=== PATIENT | female | born 1940 | race Caucasian/White ===

== ENCOUNTER → 2019-06-30 | Outpatient (CLI) | payer MEDICARE ==
[2019-06-30 13:18] LABS: African American GFR (CKD) >90 (>60 ml/min/1.73 sqM); Blood Urea Nitrogen 19 mg/dL (7-17)
--- NOTE | 2019-06-30 14:46 | CT ---
EXAMINATION TYPE: CT urogram wo/w con DATE OF EXAM: 06/30/2019 COMPARISON: HISTORY: Microscopic hematuria. CT DLP: 983.6 mGycm CONTRAST: Performed and with IV Contrast, patient injected with 100 mL of Isovue 300. CT Urography was performed with unenhanced followed by enhanced images of the kidneys, ureters and ur inary bladder. Delayed images were obtained. 3d reconstruction was performed at a separate work sta tion. FINDINGS: KIDNEYS/BLADDER: No hydronephrosis. Nonobstructing calculus lower pole left kidney measuring 6.5 mm with additional smaller adjacent 3 mm calculus. No distinct solid renal mass. 9 mm simple cyst upper pole left kidney medially. Urinary bladder grossly unremarkable. LUNG BASES-: No visible nodule. No infiltrate. LIVER/GB: Mild hepatic steatosis. No calcified gallstones. No space occupying hepatic lesion. Bili [place] tree is of normal caliber. PANCREAS: No inflammation. No distinct mass. SPLEEN: No splenic enlargement. No lesion seen. ADRENALS: No nodule. No thickening. BOWEL: Normal appendix. Normal bowel caliber. No inflammation. GENITAL ORGANS: No gross abnormality. LYMPH NODES: No greater than 1cm abdominal or pelvic lymph nodes are appreciated. AORTA: No significant abnormality. OSSEOUS STRUCTURES: No significant abnormality is seen. OTHER: No significant additional abnormality is seen. IMPRESSION: 1. Nonobstructing left-sided nephrolithiasis. 2. Subcentimeter simple cyst left kidney.
== END | disposition home or self-care (01) ==
LOC: RADCTMAIN 12:32
PROVIDERS: ATTEND Urology
DX: N20.0 Calculus of kidney (principal); N28.1 Cyst of kidney, acquired; Z88.5 Allergy status to narcotic agent
CPT/HCPCS: 82565; 84520; 74178; 36415; 74400; Q9967

== ENCOUNTER → 2020-08-12 | Outpatient (CLI) | payer MEDICARE ==
--- NOTE | 2020-08-12 17:24 | FL ---
EXAMINATION: [facility] DATE: 08/12/2020 CLINICAL HISTORY: 79-year-old female S37.20XA, patient with bladder dome biopsy complicated by perfor ation. COMPARISON: No recent studies available. Total fluoroscopy time: 2 minutes 5 seconds. Total images: 44 TECHNIQUE AND FINDINGS: The bladder was already catheterized by an indwelling Garcia. Retrograde instillation of water-soluble contrast (Cystografin) demonstrates slight irregularity of the bladder dome but no extravasation dem onstrated. A left ureteral stent is present. At 50 mL, mild right-sided vesicoureteral reflux is noted. At 100 mL, reflux reaches into the right renal collecting system. The patient could only tolerate a total of 150 mL instillation into the bladder. On the initial bladder emptying with the Garcia bag reconnected, mild vesicoureteral reflux is noted o n the left. There is essentially complete emptying of the bladder at the end of the exam. IMPRESSION: 1. The patient could only tolerate a total of 150 mL contrast into the bladder. 2. Mild irregularity of the bladder dome likely postsurgical. No extravasation seen during the study. 3. During filling, there is vesicoureteral reflux on the right which reaches up to the kidney. 4. Indwelling left ureteral stent. During initial emptying, mild vesicoureteral reflux is also seen o n the left.
== END | disposition home or self-care (01) ==
LOC: RADFLMAIN 11:14
PROVIDERS: ATTEND Urology
DX: N13.70 Vesicoureteral-reflux, unspecified (principal); Z88.5 Allergy status to narcotic agent; Z96.0 Presence of urogenital implants
CPT/HCPCS: 74455

== ENCOUNTER → 2020-09-14 | Outpatient (CLI) | payer MEDICARE ==
[2020-09-14 14:18] LABS: Basophils # (A) 0.1 k/uL (0-0.2); Basophils % (A) 1 %; Eosinophils # (A) 0.2 k/uL (0-0.7); Eosinophils % (A) 2 %; HCT 40.6 % (34.0-46.0); HGB 13.2 gm/dL (11.4-16.0); Lymphocytes # (A) 2.6 k/uL (1.0-4.8); Lymphocytes % (A) 24 %; MCH 32.3 pg (25.0-35.0); MCHC 32.4 g/dL (31.0-37.0); MCV 99.7 fL (80.0-100.0); Monocytes # (A) 0.5 k/uL (0-1.0); Monocytes % (A) 5 %; Neutrophils # (A) 7.1 k/uL (1.3-7.7); Neutrophils % (A) 67 %; Platelet Count 362 k/uL (150-450); RBC 4.07 m/uL (3.80-5.40); RDW 12.9 % (11.5-15.5); WBC 10.6 k/uL (3.8-10.6)
[2020-09-14 14:28] LABS: African American GFR (CKD) >90 (>60 ml/min/1.73 sqM); Anion Gap 7 mmol/L; Blood Urea Nitrogen 18 mg/dL (7-17); Carbon Dioxide 30 mmol/L (22-30); Chloride 104 mmol/L (98-107); Glucose 76 mg/dL (74-99); Non-African American GFR(CKD) 80 (>60 ml/min/1.73 sqM); Potassium 4.4 mmol/L (3.5-5.1); Sodium 141 mmol/L (137-145)
[2020-09-15 20:43] LABS: Magnesium 2.1 mg/dL (1.6-2.3)
[2020-09-15 20:59] LABS: T4, Free (Free Thyroxine) 1.97 ng/dL (0.78-2.19)
== END | disposition home or self-care (01) ==
LOC: LABPAT 12:43
PROVIDERS: ATTEND Internal Medicine Geriatric Medicine
DX: Z01.818 Encounter for other preprocedural examination (principal); N20.1 Calculus of ureter; R31.0 Gross hematuria
CPT/HCPCS: 36415; 80048; 83735; 84439; 84443; 85025

== ENCOUNTER → 2020-09-23 | Day surgery (SDC) | payer MEDICARE ==
--- NOTE | 2020-09-19 12:44 | P.GSHP ---
History of Present Illness H&P Date: 09/19/20 Chief Complaint: Left ureteral calculus The patient is an 79-year-old white female with urinary frequency and urinary incontinence, which appears to be due to interstitial cystitis. She underwent cystoscopy with hydrodistention and late June. She sustained a bladder pe rforation, for which she underwent surgical repair on 07/25/2020. A computed tomography scan at that time showed evidence of left hydronephrosis due to a 9 mm left UPJ calculus. A ureteral stent was placed at the time of her surgical exploration. She now comes for ureteroscopic removal of the calculus. - Constitutional Constitutional: Denies chills, Denies fever - Genitourinary (Female) Genitourinary: Reports as per HPI Past Medical History Past Medical History: Cancer, Osteoarthritis (OA) Additional Past Medical History / Comment(s): HX OF BREAST CANCER WITH RADIATION [place] (1998), BACK PAIN, STATES IRREGULAR HEART BEAT. History of Any Multi-Drug Resistant Organisms: None Reported Past Surgical History: Back Surgery, Breast Surgery, Hysterectomy, Orthopedic Surgery, Tubal Ligation Additional Past Surgical History / Comment(s): LEFT BREAST LUMPECTOMY, CARPAL TUNNEL SURGERY, REPAIR OF BLADDER RUPTURE Past Anesthesia/Blood Transfusion Reactions: Motion Sickness, Postoperative Nausea & Vomiting (PONV) Past Psychological History: Depression Past Alcohol Use History: None Reported Additional Past Alcohol Use History / Comment(s): SMOKED FOR A COUPLE YEARS IN HER 20'S. Past Drug Use History: None Reported - Past Family History Mother Family Medical History: Cancer Medications and Allergies Home Medications Medication Instructions Recorded Confirmed Type Aspirin 325 mg PO DAILY 09/10/15 09/10/15 History Atorvastatin [Lipitor] 20 mg PO DAILY 09/10/15 09/14/15 History Calcium Carbonate/Vitamin D3 1 each PO DAILY 09/10/15 09/14/15 History [Calcium 600 + Vit D Tablet] Levothyroxine Sodium [Synthroid] 25 mcg PO DAILY 09/10/15 09/14/15 History Venlafaxine HCl [Effexor] 37.5 mg PO DAILY 09/10/15 09/14/15 History Vitamin B 1 tab PO DAILY 09/10/15 09/10/15 History Cephalexin [Keflex] 500 mg PO Q8HR #15 cap 09/14/15 Rx HYDROcodone/APAP 5-325MG [[place] 5] 1 - 2 each PO Q4HR PRN #90 tab 09/14/15 Rx Allergies Allergy/AdvReac Type Severity Reaction Status Date / Time No Known Allergies Allergy Verified 09/10/15 11:17 Surgical - Exam - General well developed, well nourished, no distress - Respiratory normal respiratory effort, clear to auscultation - Cardiovascular Rhythm: regular Abnormal Heart Sounds: no systolic murmur, no diastolic murmur, no rub, no S3 Gallop, no S4 Gallop, no click, no other - Abdomen Abdomen: soft, non tender, no guarding, no rigid, no rebound - Psychiatric oriented to time, oriented to person, oriented to place, speech is normal, kevin ry intact Results - Imaging CT scan - abdomen: report reviewed, image reviewed Assessment and Plan (1) Calculus of ureter Status: Acute Code(s): N20.1 - CALCULUS OF URETER SNOMED Code(s): 39037768 Plan: Cystoscopy, left ureteral stent removal, left ureteroscopy with Holmium laser lithotripsy and possible stone basketing. The patient has been reviewed in detail, including potential risks, which include anesthesia, bleeding, infection, and ureteral injury. Care will be taken to avoid bladder distention during the procedure.
[2020-09-21 10:53] VITALS: BMI 24.7
[~2020-09-23] MED LIST: DEXAMETHASONE SOD PHOSPHATE 4 MG/ML 1 ML VIAL IV ONE; GLYCOPYRROLATE 0.2 MG/ML 2 ML VIAL ONE; LACTATED RINGERS 1,000 ML IV SCH; LEVOFLOXACIN 500MG-D5W PMX 500 MG in DEXTROSE/WATER 1 100ML.BAG IVPB PRN; LIDOCAINE 1% INJ 10MG/ML (20 ML MDV) ONE; METOPROLOL SUCCINATE (ER) 25 MG TAB.ER.24H PO STA; METOPROLOL SUCCINATE (ER) 50 MG TAB.ER.24H PO STA; MIDAZOLAM 2 MG/2 ML VIAL IV PRN; NEOSTIGMINE 1 MG/ML 10 ML VIAL ONE; ONDANSETRON 4 MG/2 ML VIAL IVP ONE; ONDANSETRON 4 MG/2 ML VIAL ONE; PROPOFOL 10 MG/ML 20 ML VIAL IV ONE; ROCURONIUM 10 MG/ML (10 ML VIAL) IV ONE; SUCCINYLCHOLINE CHLORIDE 100 MG/5 ML SYR IV ONE; fentaNYL (PF) 50 MCG/ML 2 ML AMP ONE
--- NOTE | 2020-09-23 06:31 | XR ---
EXAMINATION TYPE: XR KUB DATE OF EXAM: 09/23/2020 6:20 AM CLINICAL HISTORY: Kidney stones, prelithotripsy. TECHNIQUE: Single supine KUB image of the abdomen and obtained. COMPARISON: CT urogram June 30, 2019. FINDINGS: New Double-J left ureter stent. Roughly 13 mm calculus along proximal left ureter stent on current study. Suspect additional rounded 7 mm calculus in the pelvis. No definite right-sided nephro lithiasis. Redemonstration of underlying scoliosis with multilevel spurring and disc space narrowing in the thor acolumbar spine. Moderate to severe left greater than right hip degenerative change redemonstrated. O verall nonobstructive bowel gas pattern. IMPRESSION: As above.
--- NOTE | 2020-09-23 09:39 | FL ---
EXAMINATION TYPE: FL guidance operating room DATE OF EXAM: 09/23/2020 CLINICAL HISTORY: Left-sided kidney stones. TECHNIQUE: Fluoroscopy. COMPARISON: Same day abdominal x-ray FINDINGS: Fluoroscopic guidance was provided during left-sided lithotripsy and stent insertion proce dure performed by Dr. Tapia. A total of 44 seconds of fluoroscopic time was utilized during the pro cedure and single spot intraoperative image is acquired. Single image acquired shows proximal two thi rds of double-J left ureteral stent. IMPRESSION: As Above.
[2020-09-23] MEDS: HYDROmorphone 0.5 MG/0.5 ML SYRINGE IVP PRN ×2 (09:45→10:05)
--- NOTE | 2020-09-23 09:47 | P.OP ---
Date of Procedure: 09/23/20 Preoperative Diagnosis: Left ureteral calculus Postoperative Diagnosis: Same Procedure(s) Performed: Cystoscopy, left ureteroscopy with Holmium laser lithotripsy, left ureteral stent change Anesthesia: GETA Surgeon: Jose Tapia Estimated Blood Loss (ml): 10 IV fluids (ml): 400 Pathology: none sent Condition: stable Disposition: PACU Indications for Procedure: The patient is an 79-year-old white female with urinary frequency and urinary incontinence, which appears to be due to interstitial cystitis. She underwent cystoscopy with hydrodistention and late June. She sustained a bladder perforation, for which she underwent surgical repair on 07/25/2020. A computed tomography scan at that time showed evidence of left hydronephrosis due to a 9 mm left UPJ calculus. A ureteral stent was placed at the time of her surgical exploration. She now comes for ureteroscopic removal of the calculus. Operative Findings: 1 cm left UPJ calculus, fragmented completely. Description of Procedure: The patient was taken to the operating room and placed in the dorsolithotomy position, with legs supported in Mamadou stirrups. The external genitalia was prepped and draped sterilely. The 30 lens was used to introduce the 21-Maltese Astorga cystoscopic sheath through the urethra and into the bladder under direct vision. The bladder was examined in its entirety. Inflammation was seen in the areas of recent bladder repair. No tumors or foreign bodies were seen. Grasping forceps were used to remove the ureteral stent. The Astorga Cobra flexible ureteroscope was passed into the bladder, but the left ureteral orifice could not be cannulated. Therefore, a 0.035 inch Glidewire was passed through the ureteroscope, and the left ureteral orifice was cannulated. However, the ureteroscope could not be advanced through the ureteral orifice over a wire. Therefore, the Glidewire was advanced up to the left renal pelvis, and an 11/13-Maltese ureteral access catheter was passed over the wire, up to the proximal ureter. The flexible ureteroscope was then passed through the ureteral access catheter sheath, up to the stone at the left UPJ. The stone dislodged into the kidney. It was difficult to locate due to multiple clots within the renal pelvis. The renal pelvis was irrigated. An attempt was made to remove the clots using grasping forceps, but this was unsuccessful. Ultimately, the calculus was identified within a midpole calyx, and visualization was adequate to perform lithotripsy.. The 200 micron Holmium laser probe was passed through the ureteroscope, and lithotripsy was performed until there were no calculus fragments exceeding the size of the laser fiber tip. The Glidewire was passed through the ureteroscope, which was removed along with the ureteral access catheter sheath. The Glidewire was backloaded into the cystoscope, which was passed into the bladder. The patient's ureteral stent was replaced over the wire. Proper stent positioning was verified fluoroscopically and endoscopically. The bladder was emptied and the cystoscope removed. The patient tolerated the procedure well and was taken to the recovery room in stable condition. [facility] Report: Procedure Acuity: Elective Stone Size and Location: 1 cm, left UPJ Ureteral Dilation: No Ureteral Access Sheath Used: Yes Stone Sent for Analysis: No All Stones/Fragments Were Removed with a Basket: No Complications: No Preoperative Antibiotics Given: Yes Stent Placed: Yes If Stent Placed, Was String Left Attached: No If Stent Placed, When is it to be Removed: 1 week Discharge Medications: None
[2020-09-23 09:58] VITALS: TEMP 98.5
[2020-09-23 13:46] VITALS: RESP 16
[2020-09-23 13:47] VITALS: BP 181/86; PULSE 101
== END ==
LOC: OR 06:06
PROVIDERS: ATTEND Urology
DX: N20.1 Calculus of ureter (principal); R35.0 Frequency of micturition; R32 Unspecified urinary incontinence; M19.90 Unspecified osteoarthritis, unspecified site; I49.9 Cardiac arrhythmia, unspecified; F32.9 Major depressive disorder, single episode, unspecified; I10 Essential (primary) hypertension; M54.9 Dorsalgia, unspecified; K21.9 Gastro-esophageal reflux disease without esophagitis; Z88.5 Allergy status to narcotic agent; Z98.890 Other specified postprocedural states; Z96.0 Presence of urogenital implants; Z85.3 Personal history of malignant neoplasm of breast; Z92.3 Personal history of irradiation; Z90.710 Acquired absence of both cervix and uterus; Z98.51 Tubal ligation status; Z86.69 Personal history of other diseases of the nervous system and sense organs; Z87.898 Personal history of other specified conditions; Z91.89 Other specified personal risk factors, not elsewhere classified; Z87.891 Personal history of nicotine dependence; Z79.82 Long term (current) use of aspirin; Z79.899 Other long term (current) drug therapy; Z79.890 Hormone replacement therapy; Z79.891 Long term (current) use of opiate analgesic; Z86.73 Personal history of transient ischemic attack (TIA), and cerebral infarction without residual deficits; Z80.3 Family history of malignant neoplasm of breast
CPT/HCPCS: 74018; 52356; C1769; C1758; J1100; J2710; J2405; J1956; J2001; J3010; J0330; J2704; J1170

== ENCOUNTER → 2021-01-31 | Outpatient (CLI) | payer MEDICARE ==
--- NOTE | 2021-01-31 21:05 | US ---
EXAMINATION TYPE: US kidneys/renal and bladder DATE OF EXAM: 01/31/2021 COMPARISON: NONE CLINICAL HISTORY: 80-year-old female N13.2 Hydronephrosis. TECHNIQUE: Multiple sonographic images of the kidneys and bladder are obtained. FINDINGS: EXAM MEASUREMENTS: Right Kidney: 9.8 x 3.8 x 4.0 cm Left Kidney: 9.8 x 3.8x 4.3 cm Right Kidney: No hydronephrosis or masses seen Left Kidney: mild hydro Bladder: wnl IMPRESSION: Mild hydronephrosis on the left. Correlate as to etiology.
== END | disposition home or self-care (01) ==
LOC: RADUSWWP 12:14
PROVIDERS: ATTEND Urology
DX: N13.30 Unspecified hydronephrosis (principal)
CPT/HCPCS: 76770

== ENCOUNTER → 2023-08-02 | Outpatient (CLI) | payer MEDICARE ==
[2023-08-02 13:28] VITALS: BP 138/73; RESP 18; TEMP 97.8
--- NOTE | 2023-08-02 14:09 | P.GSHP ---
History of Present Illness H&P Date: 08/02/23 Chief Complaint: mass left breast Olive is an 82 year old white female seen in consultation for Dr. Ray with a complaint of a mass in her left breast. Had a bilateral mammogram [place] [address] which was benign. 2. This was done at [facility]. Note from Dr. Ray 06-18-23 reviewed. She noted a hard lump in her left breast several years ago. It has gotten larger. It is painful with pressure is applied to it. She has not had any fever or chills. She has not had any recent trauma or infection in the breast. She had a left breast cancer 1998. That was treated with with a lumpectomy and radiation therapy. She did not have chemotherapy, she did not have hormone therapy. 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 back pain Social History: stoped in 1983 alcohol: none drugs: none - Constitutional Constitutional: Denies chills, Denies fever - EENT Eyes: bilateral as per HPI Ears: bilateral: decreased hearing, deny: tinnitus Ears, nose, mouth and throat: Denies headache, Denies sore throat - Breasts Breasts: bilateral: as per HPI - Cardiovascular Cardiovascular: Reports as per HPI, Reports shortness of breath, Denies chest pain - Respiratory Respiratory: Denies cough, Denies 7 - Gastrointestinal Gastrointestinal: Denies abdominal pain, Denies diarrhea, Denies nausea, Denies vomiting - Genitourinary (Female) Comment: frequent UTI Genitourinary: Denies dysuria, Denies hematuria - Menstruation Menstruation: Reports post hysterectomy - Musculoskeletal Musculoskeletal: Reports as per HPI - Integumentary Integumentary: Denies pruritus, Denies rash - Neurological Neurological: Reports weakness, Denies numbness - Psychiatric Psychiatric: Denies anxiety, Denies depression - Endocrine Endocrine: Reports fatigue, Reports weight change - Hematologic/Lymphatic Comment: none - Allergic/Immunologic Allergic/Immunologic: Reports seasonal allergies Past Medical History Past Medical History: Cancer, Osteoarthritis (OA) Additional Past Medical History / Comment(s): HX OF BREAST CANCER WITH RADIATION [place] (1998), BACK PAIN, STATES IRREGULAR HEART BEAT. 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 Past Anesthesia/Blood Transfusion Reactions: Motion Sickness, Postoperative Nausea & Vomiting (PONV) Past Psychological History: Depression Smoking Status: Former smoker Past Alcohol Use History: None Reported Additional Past Alcohol Use History / Comment(s): SMOKED FOR A COUPLE YEARS IN HER 20'S. Past Drug Use History: None Reported - Past Family History Mother Family Medical History: Cancer Medications and Allergies Home Medications Medication Instructions Recorded Confirmed Type Aspirin 81 mg PO DAILY 09/10/15 08/02/23 History Levothyroxine Sodium [Synthroid] 100 mcg PO DAILY 09/10/15 08/02/23 History Cyanocobalamin (Vitamin B-12) 5,000 mcg PO DAILY 09/21/20 08/02/23 History [Vitamin B-12] Memantine HCl 10 mg PO HS 09/21/20 08/02/23 History Metoprolol Succinate [Toprol XL] 25 mg PO HS 09/21/20 08/02/23 History Vit C/E/Zn/Coppr/Lutein/Zeaxan 1 each PO BID 09/21/20 08/02/23 History [Preservision Areds 2 Softgel] Allergies Allergy/AdvReac Type Severity Reaction Status Date / Time codeine AdvReac Confusion Verified 09/23/20 06:51 Surgical - Exam Vital Signs Temp Resp BP Pulse Ox 97.8 F 18 138/73 100 08/02/23 13:15 08/02/23 13:15 08/02/23 13:15 08/02/23 13:15 - General no distress - Eyes normal ocular movement - Neck trachea midline - Respiratory normal respiratory effort, clear to auscultation - Cardiovascular Heart Sounds: normal: S1, S2 - Abdomen Abdomen: soft, non tender, no guarding, no rigid, no rebound - Integumentary normal turgor - Neurologic no disoriented, no combative - Musculoskeletal normal gait, normal posture - Psychiatric daughter with her / early dementia following CVA Breast Exam: BRA: 36C Inspection: Well-healed scar left breast, bilateral grade 2 ptosis Palpation: Right breast: Multiple positional exam fibrocystic changes no discrete dominant masses or nodules of concern Right axilla: No adenopathy of concern Left breast: Multiple positional exam well-healed scar upper inner quadrant with very firm tissue at that site and prominent tissue which is very firm and appears calcified just under the skin this is approximately 2 cm x 2 cm in size Left axilla: No adenopathy of concern Results Report of mammogram from October 2022 reviewed Assessment and Plan Assessment: Impression: 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 If unable to do an ultrasound core biopsy then core biopsy of palpable change Patient to follow up after ultrasound core biopsy area of concern left breast CC: Dr. Ray
== END ==
LOC: WWCWWP 13:07
PROVIDERS: ATTEND Surgery
DX: M19.90 Unspecified osteoarthritis, unspecified site (principal); F03.90 Unspecified dementia, unspecified severity, without behavioral disturbance, psychotic disturbance, mood disturbance, and anxiety; Z80.3 Family history of malignant neoplasm of breast; Z86.73 Personal history of transient ischemic attack (TIA), and cerebral infarction without residual deficits; Z85.3 Personal history of malignant neoplasm of breast; Z87.891 Personal history of nicotine dependence; Z88.5 Allergy status to narcotic agent; Z79.890 Hormone replacement therapy; M54.50 Low back pain, unspecified; Z79.82 Long term (current) use of aspirin

== ENCOUNTER → 2023-08-10 | Outpatient (CLI) | payer MEDICARE ==
--- NOTE | 2023-08-10 10:47 | MM ---
Reason for Exam: Clinical finding. Last screening mammogram was performed 7 month(s) ago. Indicated Problems: Lump or thickening of the left side. Patient History: Menarche at age 11. Postmenopausal. Patient used Estrogen for 12 years. Maternal unspecified had breast cancer. Risk Values: Deanna 5 year model risk: 1.1%. NCI Lifetime model risk: 1.3%. Prior Study Comparison: 03/09/1998 Bilateral Special View Mammogram, [facility]. 03/29/1999 Bilateral Screening Mammogram, [facility]. 04/05/1999 Left Special View Mammogram, [facility]. 12/23/2021 Bilateral MG 3D screening mammo w/cad, [facility]. 01/12/2023 Bilateral MG 3D screening mammo w/cad, [facility]. Tissue Density: Left: The breast tissue is heterogeneously dense. This may lower the sensitivity of mammography. Findings: Analyzed By CAD. There is a large calcification noted at the left 11:00 position. Vascular calcifications noted. No Evidence for discrete mass. Overall Assessment: Incomplete: need additional imaging evaluation, BI-RAD 0 Management: Diagnostic Breast Ultrasound of the left breast. . Results were given to the patient verbally at the time of exam. Patient should continue monthly self-breast exams. A clinical breast exam by your physician is recommended on an annual basis. This exam should not preclude additional follow-up of suspicious palpable abnormalities. Note on Deanna scores and lifetime risk: 1. A Deanna score greater than 3% is considered moderate risk. If this is the case, consider specialist referral to assess eligibility for a risk reducing agent. 2. If overall lifetime risk for the development of breast cancer is 20% or higher, the patient may qualify for future screening with alternating mammogram and breast MRI. Electronically signed and approved by: Stevie Barillas M.D. Radiologis
--- NOTE | 2023-08-10 11:21 | USB ---
Reason for Exam: Clinical finding. Patient History: Menarche at age 11. Postmenopausal. Patient used Estrogen for 12 years. Maternal unspecified had breast cancer. Risk Values: Deanna 5 year model risk: 1.1%. NCI Lifetime model risk: 1.3%. Technique: Method: Targeted. Prior Study Comparison: 03/09/1998 Bilateral Special View Mammogram, [facility]. 03/29/1999 Bilateral Screening Mammogram, [facility]. 04/05/1999 Left Special View Mammogram, [facility]. Findings: The upper inner quadrant of the left breast, the area of palpable concern of the left breast and the retroareolar of the left breast were scanned. At the site of clinical concern left 10:00 breast 4 cm from the nipple there is a dense calcification which corresponds to the mammographic abnormality. No mass is identified. Clinical correlation advised. Overall Assessment: Benign, BI-RAD 2 Management: Screening Mammogram of both breasts in 6 months. A clinical breast exam by your physician is recommended on an annual basis and results should be correlated with mammographic findings. This exam should not preclude additional follow-up of suspicious palpable abnormalities. Results were given to the patient verbally at the time of exam. Electronically signed and approved by: Stevie Barillas M.D. Radiologis
== END | disposition home or self-care (01) ==
LOC: RADUSWWP 09:43
PROVIDERS: ATTEND Surgery
DX: N63.22 Unspecified lump in the left breast, upper inner quadrant (principal); R92.332 Mammographic heterogeneous density, left breast; Z85.3 Personal history of malignant neoplasm of breast; Z78.0 Asymptomatic menopausal state; Z80.3 Family history of malignant neoplasm of breast
CPT/HCPCS: 77065; 76642; G0279; 77061

== ENCOUNTER → 2023-08-10 | Outpatient (CLI) | payer MEDICARE ==
--- NOTE | 2023-08-10 11:36 | P.PN ---
Subjective Progress Note Date: 08/10/23 mass left breast Olive is an 82 year old white female seen in consultation for Dr. Ray with a complaint of a mass in her left breast. Had [place] bilateral mammogram [place] [id number] which was benign. 2. This was done at [facility]. Note from Dr. Ray 06-18-23 reviewed. She noted a hard lump in her left breast several years ago. It has gotten larger. It is painful with pressure is applied to it. She has not had any fever or chills. She has not had any recent trauma or infection in the breast. She had a left breast cancer 1998. That was treated with with a lumpectomy and radiation therapy. She did not have chemotherapy, she did not have hormone therapy. She underwent a left breast ultrasound diagnostic mammogram on [id number]. There was noted to be a dense calcification corresponding to mammographic abnormality in the left breast at the 10 o'clock position. No mass was identified. A left breast diagnostic mammogram showed a large calcification in the 11 o'clock position. 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 Barillas. He believes the area of palpable change in the left breast is consistent with a large calcification. He does not believe he could do a core biopsy of this. I have discussed this with the patient and her daughter. I have given them the option of removing this area in the operating room versus watching this clinically. They understand that I cannot promise that is not something hiding within the scar tissue. At this point it does appear that this is calcified scar tissue. The patient would prefer to be followed clinically She will call us if any changes occur Otherwise a repeat ultrasound in 6 months with physician exam at that time CC: Dr. Ray
== END ==
LOC: WWCWWP 11:19
PROVIDERS: ATTEND Surgery
DX: C50.912 Malignant neoplasm of unspecified site of left female breast (principal); F03.90 Unspecified dementia, unspecified severity, without behavioral disturbance, psychotic disturbance, mood disturbance, and anxiety; Z80.3 Family history of malignant neoplasm of breast; Z85.3 Personal history of malignant neoplasm of breast; Z86.73 Personal history of transient ischemic attack (TIA), and cerebral infarction without residual deficits; Z88.5 Allergy status to narcotic agent

== ENCOUNTER → 2023-09-17 | Outpatient (CLI) | payer MEDICARE ==
[2023-09-17 20:52] LABS: HCT 46.2 % (37.2-46.3); HGB 15.1 g/dL (12.0-15.0); MCH 33.1 pg (27.0-32.0); MCHC 32.7 g/dL (32.0-37.0); MCV 101.3 FL (80.0-97.0); Mean Platelet Volume 11.5 FL (9.5-12.2); NRBC Per 100 WBC 0 X 10*3/uL (0.00-0.01); Platelet Count 198 X 10*3/uL (140-440); RBC 4.56 X 10*6/uL (4.10-5.20); RDW 12.8 % (11.5-14.5); WBC 10.86 X 10*3/uL (4.50-10.00)
[2023-09-17 21:18] LABS: Blood Urea Nitrogen 19.1 mg/dL (9.0-27.0); Carbon Dioxide 27.3 mmol/L (21.6-31.8); Chloride 104 mmol/L (96-109); Potassium 5.2 mmol/L (3.5-5.5); Sodium 141 mmol/L (135-145)
== END | disposition home or self-care (01) ==
LOC: LABPAT 13:19
PROVIDERS: ATTEND Student in an Organized Health Care Education/Training Program
DX: Z01.812 Encounter for preprocedural laboratory examination (principal); I49.3 Ventricular premature depolarization; I42.0 Dilated cardiomyopathy; R94.39 Abnormal result of other cardiovascular function study
CPT/HCPCS: 80051; 82565; 84520; 85027

== ENCOUNTER 2023-09-20 10:24 | Day surgery (SDC) | payer MEDICARE ==
[2023-09-17 10:27] VITALS: BMI 21.9
[~2023-09-20 10:24] MED LIST changes: +ALPRAZolam 0.25 MG TAB PO PRN; +ALPRAZolam 0.5 MG TAB PO PRN; +ASPIRIN 325 MG TAB PO STA; +ATORVASTATIN 80 MG TAB PO STA; -DEXAMETHASONE SOD PHOSPHATE 4 MG/ML 1 ML VIAL IV ONE; -GLYCOPYRROLATE 0.2 MG/ML 2 ML VIAL ONE; +HEPARIN SODIUM,PORCINE (1 ML) 2,500 UNIT in SODIUM CHLORIDE 0.9% 250 ML IRRIGATION PRN; +HEPARIN SODIUM,PORCINE 10,000 UNIT in SODIUM CHLORIDE 0.9% 1,000 ML IRRIGATION PRN; -LACTATED RINGERS 1,000 ML IV SCH; -LEVOFLOXACIN 500MG-D5W PMX 500 MG in DEXTROSE/WATER 1 100ML.BAG IVPB PRN; -LIDOCAINE 1% INJ 10MG/ML (20 ML MDV) ONE; -METOPROLOL SUCCINATE (ER) 25 MG TAB.ER.24H PO STA; -METOPROLOL SUCCINATE (ER) 50 MG TAB.ER.24H PO STA; -MIDAZOLAM 2 MG/2 ML VIAL IV PRN; -NEOSTIGMINE 1 MG/ML 10 ML VIAL ONE; +NITROGLYCERIN SL TABS 0.4 MG TAB SUBLINGUAL PRN; -ONDANSETRON 4 MG/2 ML VIAL IVP ONE; -ONDANSETRON 4 MG/2 ML VIAL ONE; -PROPOFOL 10 MG/ML 20 ML VIAL IV ONE; -ROCURONIUM 10 MG/ML (10 ML VIAL) IV ONE; -SUCCINYLCHOLINE CHLORIDE 100 MG/5 ML SYR IV ONE; -fentaNYL (PF) 50 MCG/ML 2 ML AMP ONE
[2023-09-20] MEDS ORDERED: SODIUM CHLORIDE 0.9% 1,000 ML IV ONE (10:39)
[2023-09-20] MEDS ORDERED: ASPIRIN 81 MG ONE (10:40)
[2023-09-20] MEDS ORDERED: fentaNYL (PF) 50 MCG/ML 2 ML AMP ONE (13:04)
[2023-09-20] MEDS ORDERED: HEPARIN SODIUM 1,000 UN/ML (10ML VL) ONE (13:04)
[2023-09-20] MEDS ORDERED: MIDAZOLAM 2 MG/2 ML VIAL IVP ONE ×2 (13:33)
[2023-09-20] MEDS ORDERED: fentaNYL (PF) 50 MCG/ML 2 ML AMP IVP ONE (13:33)
[2023-09-20] MEDS ORDERED: LIDOCAINE 1% INJ 10MG/ML (20 ML MDV) SQ ONE (13:33)
[2023-09-20] MEDS: LIDOCAINE 1% INJ 10MG/ML (20 ML MDV) SQ ONE ×2 (13:36→13:56)
[2023-09-20] MEDS ORDERED: VERAPAMIL SYRINGE (5 MG/10 ML) INTRAARTER ONE ×2 (14:02→14:14)
[2023-09-20] MEDS ORDERED: HEPARIN SODIUM 1,000 UN/ML (10ML VL) IV ONE (14:10)
[2023-09-20] MEDS ORDERED: VERAPAMIL 2.5 MG/ML 2 ML AMP ONE (14:13)
[2023-09-20 14:18] LABS: O2 Sat Blood Gas 64.8 %
[2023-09-20 14:20] LABS: O2 Sat Blood Gas 69.1 %
[2023-09-20] MEDS ORDERED: IOPAMIDOL-370 100ML BTL INJ ONE (14:23)
[2023-09-20 14:24] LABS: O2 Sat Blood Gas 66.5 %
[2023-09-20] MEDS ORDERED: RX INFO: IV CONTRAST WAS GIVEN 1 EACH MISC MISCELLANE PRN (15:14)
[2023-09-20] MEDS ORDERED: SODIUM CHLORIDE 0.9% 1,000 ML IV SCH (15:15)
[2023-09-20] MEDS: SODIUM CHLORIDE 0.9% 1,000 ML in EMPTY BAG 1 BAG IV SCH ×2 (17:13→23:15)
[2023-09-20] MEDS ORDERED: ONDANSETRON 4 MG/2 ML VIAL IVP PRN (19:22)
[2023-09-20] MEDS ORDERED: ACETAMINOPHEN TAB 325 MG TAB PO PRN (19:22)
[2023-09-21 04:09] VITALS: TEMP 98.1
[2023-09-21 07:16] LABS: HCT 39.1 % (34.0-46.0); HGB 13.1 gm/dL (11.4-16.0); MCH 33.5 pg (25.0-35.0); MCHC 33.4 g/dL (31.0-37.0); MCV 100.4 fL (80.0-100.0); Mean Platelet Volume 9.2; Platelet Count 168 k/uL (150-450); RDW 12.8 % (11.5-15.5); WBC 14.5 k/uL (3.8-10.6)
[2023-09-21] MEDS ORDERED: PANTOPRAZOLE 40 MG TABLET PO SCH (07:30)
[2023-09-21 08:09] LABS: African American GFR (CKD) 85 (>60 ml/min/1.73 sqM); Anion Gap 9 mmol/L; Blood Urea Nitrogen 27 mg/dL (7-17); Calcium 9.1 mg/dL (8.4-10.2); Carbon Dioxide 24 mmol/L (22-30); Chloride 105 mmol/L (98-107); Glucose 151 mg/dL (74-99); Non-African American GFR(CKD) 74 (>60 ml/min/1.73 sqM); Potassium 4.3 mmol/L (3.5-5.1); Sodium 138 mmol/L (137-145)
[2023-09-21 08:59] VITALS: BP 97/50; PULSE 73
[2023-09-21] MEDS ORDERED: ASPIRIN 81 MG PO SCH (09:00)
[2023-09-21] MEDS ORDERED: METOPROLOL SUCCINATE (ER) 25 MG TAB.ER.24H PO SCH (09:00)
[2023-09-21 10:21] VITALS: RESP 17
--- NOTE | 2023-09-21 13:49 | P.GSCN ---
History of Present Illness Consult date: 09/21/23 Reason for Consult: Coronary artery disease with severe mitral regurgitation Requesting physician: Jovani Ballesteros History of present illness: This is an 82-year-old debilitated female patient who follows outpatient with Dr. Ray for primary care and Dr. Contreras for cardiology. She has a previous medical history of mitral and tricuspid valvular heart disease, pulmonary hypertension, dilated cardiomyopathy, CVA, hypothyroid, breast cancer treated with radiation, dementia and lifetime nonsmoker. She has had reported symptoms of fatigue and exertional dyspnea, and her head activity level has decreased. She has a known history of mitral and tricuspid regurgitation, most recent echocardiogram completed in July of this year demonstrated decreased LV size and function with EF 40%, mild aortic regurgitation, moderate to severe mitral regurgitation and, and moderate to severe tricuspid regurgitation. She was recommended to undergo elective heart catheterization which was completed yesterday by Dr. Ballesteros and which demonstrated triple-vessel coronary artery disease. Consultation was placed to from cardiothoracic surgery for revascularization and valvular replacement recommendations. 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 Past Anesthesia/Blood Transfusion Reactions: No Reported Reaction, Motion Sickness, Postoperative Nausea & Vomiting (PONV) Past Psychological History: Depression Smoking Status: Former smoker Past Alcohol Use History: None Reported Additional Past Alcohol Use History / Comment(s): SMOKED FOR A COUPLE YEARS IN HER 20'S. Past Drug Use History: None Reported - Past Family History Mother Family Medical History: Cancer Medications and Allergies Home Medications Medication Instructions Recorded Confirmed Type Aspirin 81 mg PO DAILY 09/10/15 09/20/23 History Levothyroxine Sodium [Synthroid] 100 mcg PO DAILY 09/10/15 09/20/23 History Cyanocobalamin (Vitamin B-12) 5,000 mcg PO DAILY 09/21/20 09/20/23 History [Vitamin B-12] Memantine HCl 10 mg PO HS 09/21/20 09/20/23 History Metoprolol Succinate [Toprol XL] 25 mg PO HS 09/21/20 09/20/23 History Vit C/E/Zn/Coppr/Lutein/Zeaxan 1 each PO BID 09/21/20 09/20/23 History [Preservision Areds 2 Softgel] Allergies Allergy/AdvReac Type Severity Reaction Status Date / Time iodine Allergy Unknown Verified 09/20/23 11:03 codeine AdvReac Confusion Verified 09/20/23 11:03 Surgical - Exam Vital Signs Temp Pulse Resp BP Pulse Ox 97.1 F L 74 18 127/71 93 L 09/20/23 11:06 09/20/23 11:06 09/20/23 11:06 09/20/23 11:06 09/20/23 11:06 CONSTITUTIONAL: Awake and alert, appears comfortable, cooperative, well- developed, well-nourished, no pain, no acute distress EYES: Pupils equal, round, reactive to light, normal ocular movement ENT: Moist mucous membranes without oral lesions present NECK: No masses, no bruits, trachea midline RESPIRATORY: Lungs sounds clear to auscultation bilaterally. Respirations even, nonlabored. Currently on room air with oxygen saturation 96%. Strong cough. No chest wall deformities. No clubbing or cyanosis present CARDIOVASCULAR: S1, S2 present. Regular rate and rhythm, sinus rhythm on telemetry. Palpable peripheral pulses bilaterally. Trace bilateral lower extremity edema present. No calf pain or tenderness noted. GASTROINTESTINAL: Abdomen soft, nontender, nondistended without masses or organomegaly noted. There is no rebound or guarding present. Active bowel sounds present 4 quadrants. GENITOURINARY: Deferred INTEGUMENTARY: Skin is warm and dry with evidence of good perfusion. NEUROLOGIC: Cranial nerves II through XII intact, normal coordination, no obvi ous motor or sensory deficits, speech is normal MUSKULOSKELETAL: Able to move all extremities, strength equal bilaterally, normal posture PSYCHIATRIC: Alert and oriented to person place Results - Labs 09/21/23 06:50 09/21/23 06:50 Abnormal Lab Results - Last 24 Hours (Table) 09/21/23 09/21/23 Range/Units 06:50 06:50 WBC 14.5 H (3.8-10.6) k/uL MCV 100.4 H (80.0-100.0) fL BUN 27 H (7-17) mg/dL Glucose 151 H (74-99) mg/dL Diabetes panel 09/21/23 Range/Units 06:50 Sodium 138 (137-145) mmol/L Potassium 4.3 (3.5-5.1) mmol/L Chloride 105 (98-107) mmol/L Carbon Dioxide 24 (22-30) mmol/L BUN 27 H (7-17) mg/dL Creatinine 0.75 (0.52-1.04) mg/dL Glucose 151 H (74-99) mg/dL Calcium 9.1 (8.4-10.2) mg/dL Calcium panel 09/21/23 Range/Units 06:50 Calcium 9.1 (8.4-10.2) mg/dL Pituitary panel 09/21/23 Range/Units 06:50 Sodium 138 (137-145) mmol/L Potassium 4.3 (3.5-5.1) mmol/L Chloride 105 (98-107) mmol/L Carbon Dioxide 24 (22-30) mmol/L BUN 27 H (7-17) mg/dL Creatinine 0.75 (0.52-1.04) mg/dL Glucose 151 H (74-99) mg/dL Calcium 9.1 (8.4-10.2) mg/dL Adrenal panel 09/21/23 Range/Units 06:50 Sodium 138 (137-145) mmol/L Potassium 4.3 (3.5-5.1) mmol/L Chloride 105 (98-107) mmol/L Carbon Dioxide 24 (22-30) mmol/L BUN 27 H (7-17) mg/dL Creatinine 0.75 (0.52-1.04) mg/dL Glucose 151 H (74-99) mg/dL Calcium 9.1 (8.4-10.2) mg/dL - Imaging Additional studies: Heart catheterization films reviewed with Assessment and Plan Assessment: Three-vessel coronary artery disease Moderate to severe mitral and tricuspid regurgitation Pulmonary hypertension Dilated cardiomyopathy CVA Hypothyroid Breast cancer treated with radiation Dementia Debility Lifetime nonsmoker Plan: The patient was seen and examined yesterday by . Chart/diagnostics reviewed. Unfortunately this is a very debilitated and demented female patient who would be very high risk for open heart surgery and likely would not have a meaningful recovery. After open heart surgery. This was discussed in great detail between and the patient as well as her daughter and they are in agreement. also discussed this with Dr. Ballesteros. Recommend stenting with possible bhavani-clip down the line. Please call us with any further questions. Thank you for this consult. I have personally seen and examined the patient, performed the documentation and the assessment and plan as written. Number of minutes spent on the visit: 30. KEYLA BonillaC Attending Addendum: Pt seen and evaluated with PRESCRIPTION CLERK LENSES above. Agree with her assessment and plan. The patient is a 82 year-old female who presented for elective cardiac cath which reveals 3v CAD. Of note, the patient also has a hx of moderate-severe MR, and some TR. She has significant dementia and relies on her daughters to take care of her. She cannot even perform certain daily activities of living. She is not a good cadidate for CABG/MVr. Recommend possibly staged PCI to LAD and Circ vs medical management of her disease. I spent greater than 35 minutes reviewing the data and discussing the findings with the patient and her family. Time with Patient: Greater than 30
--- NOTE | 2023-09-21 14:28 | P.PN ---
Subjective Progress Note Date: 09/21/23 SUBJECTIVE: Patient is a 81-year-old female with a past medical history of severe mitral regurgitation. She has been evaluated on an outpatient basis by Dr. driver for her valve disease. Yesterday she was scheduled for an outpatient heart catheterization. Her cardiac catheterization showed 70% diffuse disease in the RCA, 80-90% disease and LCx and 80-90% mid LAD disease. Due to this she was admitted overnight to get evaluated by cardiothoracic surgery team Cardiothoracic surgery team deems patient a poor candidate for open heart surgery due to her frail status, poor mental status, dementia and low functional capacity. Patient denies having any chest pain chest pressure or shortness of breath. Her right ulnar exercise appears intact. PHYSICAL EXAMINATION Vital signs reviewed. Head: Normocephalic. Eyes: Sclerae nonicteric. Neck: Brisk carotid upstroke, no jugular venous distention. Lungs: Clear to auscultation. Heart: Regular rate and rhythm, systolic murmur audible Abdomen: Soft nontender, positive bowel sounds no organomegaly. Extremities: No edema, intact distal pulses. ASSESSMENT Severe mitral regurgitation Multivessel coronary artery disease Dementia Frailty PLAN Patient is okay to be discharged home on current cardiac medications without any changes. Follow up outpatient with Dr. driver on his [employer] Radha. Case was discussed with Radha. At this time plan is to evaluate patient's symptoms and see if she would be a good candidate for intervention or we should obtain a second surgical opinion. Patient's family was updated about this plan. They are in agreement. Objective - Vital Signs Vital signs: Vital Signs Temp 98.1 F 09/21/23 07:00 Pulse 73 09/21/23 08:00 Resp 17 09/21/23 10:00 BP 97/50 09/21/23 07:00 Pulse Ox 96 09/21/23 07:00 FiO2 Intake & Output 09/20/23 09/21/23 09/21/23 18:59 06:59 18:59 Intake Total 400 Balance 400 Weight 52.8 kg Intake: IV 400 Other: # Voids 4 4 - Labs CBC & Chem 7: 09/21/23 06:50 09/21/23 06:50 Labs: Abnormal Lab Results - Last 24 Hours (Table) 09/21/23 09/21/23 Range/Units 06:50 06:50 WBC 14.5 H (3.8-10.6) k/uL MCV 100.4 H (80.0-100.0) fL BUN 27 H (7-17) mg/dL Glucose 151 H (74-99) mg/dL
--- NOTE | 2023-09-21 14:45 | P.CARDCATH ---
Date of Procedure: 09/20/23 Description of Procedure: DIAGNOSTIC CORONARY ANGIOGRAPHY, Right and LEFT HEART CATH REPORT PROCEDURES PERFORMED: Left heart catheterization Right heart catheterization Selective coronary angiography Moderate conscious sedation 45 mins Ultrasound assisted right ulnar access. INDICATION: 82-year-old female with history of severe mitral regurgitation was scheduled for outpatient left and right heart catheterization as a part of her mitral valve evaluation. CONSENT: I have discussed the risks, benefits and alternative therapies for the above-mentioned procedure, sedation/analgesia and necessary blood product administration (if indicated, as they pertain to this patient). The patient has indicated understanding and acceptance of the risks and procedures discussed. Conscious Sedation: Patient's ECG, heart rate, blood pressure, pulse oximetry was monitored throughout the duration of procedure under my direct supervision. 1 mg Versed and 25 mg Fentanyl were used for induction of moderate conscious sedation. Total duration of moderate concious sedation 45 minutes. PROCEDURE: After explaining the risks, benefits and alternatives of the above mentioned procedures in detail to the patient, informed consent was obtained. Patient was taken to the catheterization lab, prepped and draped in usual sterile fashion using universal precuations. Barbow and alyssa test were perform ed to confirm adequate perfusion to fingers. Patient's right radial artery was very small and could not be identified using it. Due to this be used right ulnar artery artery. Ultrasound was used to identify the ulnar artery. 1% lidocaine was infiltrated over the right radial artery. A 6-Filipino sheath was placed and secured in the right radial artery using modified Seldinger technique. The sheath was flushed and 5 mg verapamil was administered intra-arterially. Right antecubital vein IV cannula was exchanged for a 6-Filipino central guide sheath over the wire using a modified Seldinger technique. Lidocaine was infiltrated in the antecubital fossa. Using a 5-Filipino [place] Luis catheter, right heart catheterization was performed. Thermodilution study, Boom study was performed. Blood samples were obtained from PA, RA and RV. Sequential pressures were obtained. J tipped wire was advanced under fluoroscopic guidance. Once the wire tip reached aortic root 3000 units of IV heparin was given. Over the wire JL4 diagnostic catheter was advanced. Wire was removed, catheter was flushed and manipulated under fluoroscopy to selectively engaged the left coronary ostium. Left coronary angioplasty was performed in different angiographic projections. This catheter was exchanged for a JR4 diagnostic catheter over the wire. The catheter was flushed and manipulated to cross the aortic valve. LV pressures were obtained. Pullback was performed across aortic valve and catheter was manipulated to selectively engage the right coronary ostium under fluoroscopic guidance. Right coronary angiography was performed in different angiographic projections. Catheter was removed over the wire. Radial sheath was flushed. The right radial sheath was removed and a TR band was placed with excellent patent hemostasis was achieved. The patient tolerated the procedure well. Patient was transported back to the post catheterization holding area in stable condition. Angiographic images were reviewed in detail. HEMODYNAMICS: Aortic Pressure: 104/55 mmHg. LV pressure: 108/10 mmHg. LVEDP 16 mmHg. Mean RA pressure 8 mmHg RV pressure 40/6 mmHg. RVEDP 10 mmHg PA pressure 40/16 mmHg mean 24 mmHg Mean Pulmonary Artery wedge pressure, 16 mmHg Boom cardiac output 3.32 liters per minute Boom cardiac index 2.25 L/m/m Thermodilution cardiac output 2.6 L/m Thermodilution cardiac index 1.78 L/m/m RA sat 66% RV sat 69% PA sat 65% Arterial sat 97% Hemoglobin 14, BSA 1.47, heart rate 76 SELECTIVE CORONARY ARTERIOGRAPHY: LEFT MAIN: The left main is a large caliber vessel which bifurcates into the LAD and circumflex. Left main appears angiographically normal. LEFT ANTERIOR DESCENDING CORONARY ARTERY: Proximal LAD has 2030% luminal irregularities. Mid LAD has 80-85% sequential lesion. It gives rise to diagonal branches which has mild luminal irregularities. Distal LAD has luminal irregularities. LEFT CIRCUMFLEX CORONARY ARTERY: It is nondominant vessel. Proximal LCx has 80- 90% eccentric disease. It gives rise to an OM1 branch which is medium-sized and bifurcates. Proximal OM1 has 70-80% stenosis. The inferior branch of OM1 has 70-80% disease in proximal segment. LCx beyond OM1 branch is diffusely disease at 70-80%. RIGHT CORONARY ARTERY: Dominant vessel. RCA is diffusely disease from proximal to distal segment with the severity of 60-70%. IMPRESSION: 80% mid LAD disease 80% proximal LCx disease 70% diffuse RCA disease Upper normal wedge pressure and LVEDP No significant pulmonary hypertension PLAN: Cardiac thoracic surgery consult for multivessel CAD and mitral regurgitation. Performing Physician Jovani Ballesteros MD
== END 2023-09-21 13:45 | disposition home or self-care (01) ==
LOC: CATHCVL 10:24 → 6NMEDSUR 14:35 → CATHCVL 09-21 13:45
PROVIDERS: ATTEND Student in an Organized Health Care Education/Training Program
DX: I25.10 Atherosclerotic heart disease of native coronary artery without angina pectoris (principal); I49.3 Ventricular premature depolarization; I08.3 Combined rheumatic disorders of mitral, aortic and tricuspid valves; C50.919 Malignant neoplasm of unspecified site of unspecified female breast; F03.90 Unspecified dementia, unspecified severity, without behavioral disturbance, psychotic disturbance, mood disturbance, and anxiety; Z95.1 Presence of aortocoronary bypass graft; M19.90 Unspecified osteoarthritis, unspecified site; E07.9 Disorder of thyroid, unspecified; Z98.51 Tubal ligation status; Z87.891 Personal history of nicotine dependence; Z86.73 Personal history of transient ischemic attack (TIA), and cerebral infarction without residual deficits; Z79.890 Hormone replacement therapy; Z79.82 Long term (current) use of aspirin; Z79.899 Other long term (current) drug therapy
CPT/HCPCS: 93460; 76937; 80048; 85018; 82810; 85027; C1769; C1751; J2250; J2001; J3010; J1644; Q9967

== ENCOUNTER 2025-01-04 13:46 | Emergency (ER) | payer MEDICARE ==
--- NOTE | 2025-01-04 14:18 | ED ---
General Adult HPI - General Chief complaint: Abdominal Pain Stated complaint: Abd and leg pain Time Seen by Provider: 01/04/25 14:04 Source: patient, family, RN notes reviewed Mode of arrival: ambulatory Limitations: no limitations - History of Present Illness Initial comments: 84-year-old female presenting to emergency room with daughter for complaint of dysuria over the past 3 weeks. Additionally, patient states that she has been experiencing left-sided flank pain with radiation into the groin. Patient was evaluated by urology last week where she left a urine sample however results have not been relayed. Patient does have visual impairment and is unaware if she has been experiencing hematuria. Denies changes in urinary frequency or urgency, fevers, chills, nausea, vomiting. Endorses suprapubic tenderness. Does have a history of kidney stones. Denies recent antibiotic use. - Related Data Home Medications Medication Instructions Recorded Confirmed Aspirin 81 mg PO DAILY 09/10/15 09/20/23 Levothyroxine Sodium [Synthroid] 100 mcg PO DAILY 09/10/15 09/20/23 Cyanocobalamin (Vitamin B-12) 5,000 mcg PO DAILY 09/21/20 09/20/23 [Vitamin B-12] Memantine HCl 10 mg PO HS 09/21/20 09/20/23 Metoprolol Succinate [Toprol XL] 25 mg PO HS 09/21/20 09/20/23 Vit C/E/Zn/Coppr/Lutein/Zeaxan 1 each PO BID 09/21/20 09/20/23 [Preservision Areds 2 Softgel] Allergies Allergy/AdvReac Type Severity Reaction Status Date / Time iodine Allergy Unknown Verified 09/20/23 11:03 codeine AdvReac Confusion Verified 09/20/23 11:03 Review of Systems ROS Statement: Those systems with pertinent positive or pertinent negative responses have been documented in the HPI. ROS Other: All systems not noted in ROS Statement are negative. 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 Past Anesthesia/Blood Transfusion Reactions: No Reported Reaction, Motion Sickness, Postoperative Nausea & Vomiting (PONV) Past Psychological History: Depression Smoking Status: Former smoker Past Alcohol Use History: None Reported Past Drug Use History: None Reported - Past Family History Mother Family Medical History: Cancer General Exam Limitations: no limitations General appearance: alert, in no apparent distress ENT exam: Present: normal exam, mucous membranes moist Respiratory exam: Present: normal lung sounds bilaterally. Absent: respiratory distress, wheezes, rales, rhonchi, stridor Cardiovascular Exam: Present: regular rate, normal rhythm, normal heart sounds. Absent: systolic murmur, diastolic murmur, rubs, gallop, clicks GI/Abdominal exam: Present: soft, tenderness (suprapubic), normal bowel sounds. Absent: distended, guarding, rebound, rigid Extremities exam: Present: normal inspection, full ROM, normal capillary refill. Absent: tenderness, pedal edema, joint swelling, calf tenderness Back exam: Present: normal inspection. Absent: CVA tenderness (R), CVA tenderness (L) Course Vital Signs 01/04/25 13:54 Temperature 97.8 F Pulse Rate 71 Respiratory 16 Rate Blood Pressure 114/75 O2 Sat by Pulse 98 Oximetry Medical Decision Making - Medical Decision Making Was pt. sent in by a medical professional or institution (, PA, FINAL INSPECTOR [employer], urgent care, hospital, or [place] health care facility...) When possible be specific @ -No Did you speak to anyone other than the patient for history (EMS, parent, family, police, friend...)? What history was obtained from this source @ -Spoke to patient's daughter at bedside to the patient was evaluated by urology outpatient on Sunday however results of urinalysis were not relayed. Did you review nursing and triage notes (agree or disagree)? Why? @ -I reviewed and agree with nursing and triage notes Were old charts reviewed (outside hosp., previous admission, EMS record, old EKG, old radiological studies, urgent care reports/EKG's, [place] health care facility records)? Report findings @ -No old charts were reviewed Differential Diagnosis (chest pain, altered mental status, abdominal pain women, abdominal pain men, vaginal bleeding, weakness, fever, dyspnea, syncope, h eadache, dizziness, GI bleed, back pain, seizure, CVA, palpatations, mental health, musculoskeletal)? @ -Differential Abdominal Pain Women: Appendicitis, Cholecystitis, diverticulosis, ischemic bowel, pancreatitis, hepatitis, UTI, gastroenteritis, AAA, incarcerated hernia, bowel obstruction, constipation, inflammatory bowel, hepatitis, peptic ulcer disease, splenic infarction, perforated viscus, vulvitis, ovarian torsion, PID, kidney stone, placenta abruption, this is not meant to be an all-inclusive list EKG interpreted by me (3pts min.). @ -None X-rays interpreted by me (1pt min.). @ -None done CT interpreted by me (1pt min.). @ -CT of the abdomen pelvis without contrast reveals no acute process, no evidence of renal mass no nephrolithiasis or hydronephrosis U/S interpreted by me (1pt. min.). @ -None done What testing was considered but not performed or refused? (CT, X-rays, U/S, labs)? Why? @ -None What meds were considered but not given or refused? Why? @ -None Did you discuss the management of the patient with other professionals (pr ofessionals i.e. , PA, FINAL INSPECT[employer], lab, RT, psych nurse, marriage and family social worker, limnologist, teacher, ski patrol officer, rn case manager)? Give summary @ -No Was smoking cessation discussed for >3mins.? @ -No Was critical care preformed (if so, how long)? @ -No Were there social determinants of health that impacted care today? How? (Homelessness, low income, unemployed, alcoholism, drug addiction, transportation, low edu. Level, literacy, decrease access to med. care, retirement, rehab)? @ -No Was there de-escalation of care discussed even if they declined (Discuss DNR or withdrawal of care, Hospice)? DNR status @ -No What co-morbidities impacted this encounter? (DM, HTN, Smoking, COPD, CAD, Cancer, CVA, ARF, Chemo, Hep., AIDS, mental health diagnosis, sleep apnea, morbid obesity)? @ -None Was patient admitted / discharged? Hospital course, mention meds given and route, prescriptions, significant lab abnormalities, going to OR and other pertinent info. @ -Discharge. 84 year old female presenting with suprapubic tenderness and dysuria. Mild tenderness on examination. She is offered pain medication how ever was declined. Labs remarkable for hematuria urinalysis of 42 red cells and moderate blood, no signs of infection. CBC and CMP unremarkable. CT no acute process. Recommend outpatient cystoscope for further evaluation of dysuria and microscopic hematuria. patient is established with urology outpatient and has scheduled follow-up. Case discussed with Dr. Vu Undiagnosed new problem with uncertain prognosis? @ -No Drug Therapy requiring intensive monitoring for toxicity (Heparin, Nitro, Insulin, Cardizem)? @ -No Were any procedures done? @ -No Diagnosis/symptom? @ -Hematuria Acute, or Chronic, or Acute on Chronic? @ -Acute Uncomplicated (without systemic symptoms) or Complicated (systemic symptoms)? @ -Uncomplicated Side effects of treatment? @ -No Exacerbation, Progression, or Severe Exacerbation? @ -No Poses a threat to life or bodily function? How? (Chest pain, [place], [place], pneumonia, PE, COPD, DKA, ARF, appy, cholecystitis, CVA, Diverticulitis, Homicidal, Suicidal, threat to staff... and all critical care pts) @ -No - Lab Data Result diagrams: 01/04/25 14:32 01/04/25 15:10 Lab Results 01/04/25 01/04/25 01/04/25 Range/Units 14:32 14:32 15:10 WBC 9.2 (3.8-10.6) k/uL RBC 4.52 (3.80-5.40) m/uL Hgb 14.5 (11.4-16.0) gm/dL Hct 44.6 (34.0-46.0) % MCV 98.6 (80.0-100.0) fL MCH 32.0 (25.0-35.0) pg MCHC 32.5 (31.0-37.0) g/dL RDW 13.3 (11.5-15.5) % Plt Count 235 (150-450) k/uL MPV 7.8 Neutrophils % 68 % Lymphocytes % 22 % Monocytes % 6 % Eosinophils % 2 % Basophils % 0 % Neutrophils # 6.2 (1.3-7.7) k/uL Lymphocytes # 2.0 (1.0-4.8) k/uL Monocytes # 0.6 (0-1.0) k/uL Eosinophils # 0.2 (0-0.7) k/uL Basophils # 0.0 (0-0.2) k/uL Sodium 136 L (137-145) mmol/L Potassium 4.6 (3.5-5.1) mmol/L Chloride 103 (98-107) mmol/L Carbon Dioxide 25 (22-30) mmol/L Anion Gap 8 mmol/L BUN 22 H (7-17) mg/dL Creatinine 0.73 (0.52-1.04) mg/dL Est GFR (CKD-EPI)AfAm 87 (>60 ml/min/1.73 sqM) Est GFR (CKD-EPI)NonAf 76 (>60 ml/min/1.73 sqM) Glucose 68 L (74-99) mg/dL Calcium 9.4 (8.4-10.2) mg/dL Total Bilirubin 0.5 (0.2-1.3) mg/dL AST 37 H (14-36) U/L ALT 29 (4-34) U/L Alkaline Phosphatase 97 (38-126) U/L Total Protein 6.8 (6.3-8.2) g/dL Albumin 4.2 (3.5-5.0) g/dL Urine Color Yellow Urine Appearance Clear (Clear) Urine pH 6.0 (5.0-8.0) Ur Specific [place] 1.021 (1.001-1.035) Urine Protein Trace H (Negative) Urine Glucose (UA) 4+ H (Negative) Urine Ketones Negative (Negative) Urine Blood Moderate H (Negative) Urine Nitrite Negative (Negative) Urine Bilirubin Negative (Negative) Urine Urobilinogen <2.0 (<2.0) mg/dL Ur Leukocyte Esterase Trace H (Negative) Urine RBC 42 H (0-5) /hpf Urine WBC 7 H (0-5) /hpf Ur Squamous Epith Cells <1 (0-4) /hpf Urine Mucus Rare H (None) /hpf Disposition Clinical Impression: Hematuria Disposition: HOME SELF-CARE Condition: Good Instructions (If sedation given, give patient instructions): Hematuria (ED) Additional Instructions: Please return to the Emergency Department if symptoms worsen or any other concerns. Is patient prescribed a controlled substance at d/c from ED?: No Referrals: Nimesh Ray MD [Primary Care Provider] - 1-2 days Time of Disposition: 16:08
[2025-01-04 14:42] LABS: Basophils % (A) 0 %; Eosinophils # (A) 0.2 k/uL (0-0.7); Eosinophils % (A) 2 %; HCT 44.6 % (34.0-46.0); HGB 14.5 gm/dL (11.4-16.0); Lymphocytes % (A) 22 %; MCHC 32.5 g/dL (31.0-37.0); MCV 98.6 fL (80.0-100.0); Mean Platelet Volume 7.8; Monocytes # (A) 0.6 k/uL (0-1.0); Monocytes % (A) 6 %; Neutrophils # (A) 6.2 k/uL (1.3-7.7); Neutrophils % (A) 68 %; Platelet Count 235 k/uL (150-450); RBC 4.52 m/uL (3.80-5.40); RDW 13.3 % (11.5-15.5); WBC 9.2 k/uL (3.8-10.6)
[2025-01-04 14:54] LABS: Appearance,Urine Clear (Clear); Bilirubin,Urine Negative (Negative); Blood,Urine Moderate (Negative); Color,Urine Yellow; Glucose,Urine (UA) 4+ (Negative); Ketones,Urine Negative (Negative); Leukocyte Esterase,Urine Trace (Negative); Mucus,Urine Rare /hpf; Nitrite,Urine Negative (Negative); Protein,Urine Trace (Negative); RBC,Urine 42 /hpf (0-5); Specific Gravity,Urine 1.021 (1.001-1.035); Squamous Epithelial Cell,Urine <1 /hpf (0-4); Urobilinogen,Urine <2.0 mg/dL (<2.0); WBC,Urine 7 /hpf (0-5)
--- NOTE | 2025-01-04 15:15 | CT ---
EXAMINATION TYPE: CT abdomen pelvis wo con DATE OF EXAM: 01/04/2025 2:59 PM COMPARISON: None. CLINICAL INDICATION: Female, 84 years old with history of pelvic pain, L flank pain, LLQ abdomen pain , suprapubic pain. dysuria TECHNIQUE: Axial images with sagittal coronal reformats. Examination of the solid and hollow viscera is limited given the lack of contrast. CT DLP: 353.2 mGycm, Automated exposure control for dose reduction was used. FINDINGS: LUNG BASES: No evidence for nodule. No evidence for infiltrate. LIVER/GB: The gallbladder is unremarkable. No space-occupying hepatic lesion. PANCREAS: No pancreatic mass identified. No inflammatory process seen. SPLEEN: No evidence for splenomegaly. No intrasplenic lesions seen. Capsular splenic calcification no rocio. ADRENALS: No adrenal nodules identified. No evidence for thickening. KIDNEYS: No evidence for renal mass. No nephrolithiasis. No hydronephrosis. BOWEL: Appendix has a normal appearance. No evidence of bowel obstruction. No inflammatory process. Lymph nodes: No evidence for adenopathy greater than 1 cm. Abdominal aorta: Atheromatous changes seen. No evidence for aneurysm. Genital organs: Hysterectomy changes. No adnexal masses Other: Degenerative changes lumbar spine with curvature seen convex to the right. IMPRESSION: NO ACUTE PROCESS IN THE PATIENT'S SYMPTOMS. [facility], , 01/04/2025 3:13 PM
[2025-01-04 15:43] LABS: ALT 29 U/L (4-34); AST 37 U/L (14-36); African American GFR (CKD) 87 (>60 ml/min/1.73 sqM); Albumin 4.2 g/dL (3.5-5.0); Alkaline Phosphatase 97 U/L (38-126); Anion Gap 8 mmol/L; Blood Urea Nitrogen 22 mg/dL (7-17); Calcium 9.4 mg/dL (8.4-10.2); Carbon Dioxide 25 mmol/L (22-30); Chloride 103 mmol/L (98-107); Glucose 68 mg/dL (74-99); Non-African American GFR(CKD) 76 (>60 ml/min/1.73 sqM); Potassium 4.6 mmol/L (3.5-5.1); Sodium 136 mmol/L (137-145); Total Bilirubin 0.5 mg/dL (0.2-1.3); Total Protein 6.8 g/dL (6.3-8.2)
[2025-01-04 17:04] VITALS: BP 116/70; PULSE 78; RESP 18; TEMP 98.1
== END 2025-01-04 17:04 | disposition home or self-care (01) ==
LOC: EC 13:46
DX: R31.9 Hematuria, unspecified (principal); Z87.891 Personal history of nicotine dependence; Z88.5 Allergy status to narcotic agent; Z88.4 Allergy status to anesthetic agent
CPT/HCPCS: 36415; 74176; 80053; 81001; 85025; 99284

== ENCOUNTER 2025-01-29 07:08 | Day surgery (SDC) | payer MEDICARE ==
--- NOTE | 2025-01-28 21:08 | P.GSHP ---
History of Present Illness H&P Date: 01/28/25 Chief Complaint: Gross hematuria The patient is an 84-year-old white female who has been treated for urinary urge incontinence and recurrent UTIs. She was treated for an Enterococcus UTI last month. She subsequently developed gross hematuria. CT scan of the abdomen and pelvis showed normal upper tracts. Aspirin and Plavix were held, and the hematuria resolved. This allowed cystoscopy to be performed, revealing tumor at the right posterior bladder dome having a cobblestone appearance. She now comes for resection. - Genitourinary (Female) Genitourinary: Reports as per HPI Past Medical History Past Medical History: Coronary Artery Disease (CAD), Cancer, CVA/TIA, Dementia, Eye Disorder, Hyperlipidemia, Memory Impairment, Osteoarthritis (OA), Thyroid Disorder, Vascular Disorder Additional Past Medical History / Comment(s): HX OF LEFT BREAST CANCER WITH RADIATION [place] (1998), BACK PAIN, STATES IRREGULAR HEART BEAT, KIDNEY STONES, HX OF PERFORATED BLADDER, hypothyroidism, CVA 8 yrs ago, balance problems, hypotension, vision impaired-rare disorder PXE- blurry vision. History of Any Multi-Drug Resistant Organisms: CRE Date of last positivie culture/infection: 02/16/22 MDRO CRE per [facility]-Lab Carbapenemase Not Detected MDRO Source:: Urine Past Surgical History: Back Surgery, Bladder Surgery, Breast Surgery, Heart Catheterization With Stent, Hysterectomy, Orthopedic Surgery, Tubal Ligation Additional Past Surgical History / Comment(s): LEFT BREAST LUMPECTOMY, CARPAL TUNNEL SURG., LITHOTRIPSY, RIGHT ROTATOR CUFF REP., stent in leg Past Anesthesia/Blood Transfusion Reactions: Previous Problems w/ Anesthesia, Motion Sickness, Postoperative Nausea & Vomiting (PONV) Additional Past Anesthesia/Blood Transfusion Reaction / Comment(s): hard time waking up out of anesthesia and confusion Date of Last Stent Placement:: 09/2023 Smoking Status: Former smoker - Past Family History Sister(s) Family Medical History: Deep Vein Thrombosis (DVT) Medications and Allergies Home Medications Medication Instructions Recorded Confirmed Type Aspirin 81 mg PO DAILY 09/10/15 01/23/25 History Levothyroxine Sodium [Synthroid] 50 mcg PO DAILY 09/10/15 01/23/25 History Cyanocobalamin (Vitamin B-12) 5,000 mcg PO DAILY 09/21/20 01/23/25 History [Vitamin B-12] Memantine HCl 10 mg PO HS 09/21/20 01/23/25 History Metoprolol Succinate [Toprol XL] 12.5 mg PO DAILY 09/21/20 01/23/25 History Vit C/E/Zn/Coppr/Lutein/Zeaxan 2 each PO BID 09/21/20 01/23/25 History [Preservision Areds 2 Softgel] Clopidogrel [Plavix] 75 mg PO DAILY 01/19/25 01/23/25 History Ergocalciferol [Vitamin D2 (1250 1,250 mcg PO Q14D 01/19/25 01/23/25 History Mcg = 16885 Iu)] Ibandronate Sodium [Boniva] 150 mg PO QMONTHLY 01/19/25 01/23/25 History Losartan [Cozaar] 12.5 mg PO HS 01/19/25 01/23/25 History Methenamine Hippurate 1 gm PO DAILY 01/19/25 01/23/25 History Mirabegron [Mirabegron ER] 50 mg PO HS 01/19/25 01/23/25 History Multivitamin/Iron/Folic Acid 1 each PO DAILY 01/19/25 01/23/25 History [Centrum Women Tablet] Rosuvastatin [Crestor] 10 mg PO HS 01/19/25 01/23/25 History Spironolactone [Aldactone] 12.5 mg PO DAILY 01/19/25 01/23/25 History Ubidecarenone [Co Q-10] 1 dose PO HS 01/19/25 01/23/25 History Venlafaxine HCl ER [Effexor Xr] 75 mg PO DAILY 01/19/25 01/23/25 History Allergies Allergy/AdvReac Type Severity Reaction Status Date / Time codeine Allergy Nausea & Verified 01/23/25 09:34 Vomiting iodine Allergy Nausea & Verified 01/23/25 09:34 Vomiting Surgical - Exam - General well developed, well nourished, no distress - Respiratory normal respiratory effort - Abdomen Abdomen: soft, non tender, no guarding, no rigid, no rebound - Genitourinary normal external genitalia - Psychiatric oriented to time, oriented to person, oriented to place, speech is normal, memory intact Results - Imaging CT scan - abdomen: report reviewed, image reviewed Assessment and Plan (1) Gross hematuria Status: Acute Code(s): R31.0 - GROSS HEMATURIA SNOMED Code(s): 853065540 (2) Neoplasm of unspecified behavior of bladder Status: Acute Code(s): D49.4 - NEOPLASM OF UNSPECIFIED BEHAVIOR OF BLADDER SNOMED Code(s): 591353317 Plan: The patient has been cleared by her plastics fitter to undergo cystoscopy, transurethral resection of bladder tumor. However, she is considered high risk. The planned procedure has been reviewed in detail with the patient and her daughter. They have been made aware of potential risks, which include anesthesia, bleeding, infection, and bladder perforation.
[2025-01-29] MEDS ORDERED: DEXAMETHASONE SOD PHOSPHATE 4 MG/ML 1 ML VIAL IV ONE (07:19)
[2025-01-29] MEDS ORDERED: LACTATED RINGERS 1,000 ML IV SCH ×2 (07:19)
[2025-01-29] MEDS ORDERED: ONDANSETRON 4 MG/2 ML VIAL IVP ONE (07:19)
[2025-01-29] MEDS ORDERED: LIDOCAINE 1% (10MG/ML) FOR IV START INTRADERMA PRN (07:19)
[2025-01-29] MEDS ORDERED: ONDANSETRON 4 MG/2 ML VIAL IVP PRN (07:19)
[2025-01-29] MEDS ORDERED: HYDROmorphone 0.5 MG/0.5 ML SYRINGE IVP PRN ×2 (07:19)
[2025-01-29] MEDS: LACTATED RINGERS 1,000 ML IV ONE (07:46)
[2025-01-29] MEDS: DEXAMETHASONE SOD PHOSPHATE 4 MG/ML 1 ML VIAL IV ONE (07:47)
[2025-01-29] MEDS: ONDANSETRON 4 MG/2 ML VIAL IVP ONE (07:47)
[2025-01-29] MEDS ORDERED: LIDOCAINE 1% INJ 10MG/ML (20 ML MDV) ONE (08:27)
[2025-01-29] MEDS ORDERED: NEOSTIGMINE 1 MG/ML 10 ML VIAL ONE (08:27)
[2025-01-29] MEDS ORDERED: ROCURONIUM 10 MG/ML (5 ML VIAL) IV ONE (08:27)
[2025-01-29] MEDS ORDERED: fentaNYL (PF) 50 MCG/ML 2 ML AMP ONE (08:27)
[2025-01-29] MEDS ORDERED: SUCCINYLCHOLINE CHLORIDE 200 MG/10 ML VIAL IV ONE (08:27)
[2025-01-29] MEDS ORDERED: PROPOFOL 10 MG/ML 20 ML VIAL IV ONE (08:27)
[2025-01-29] MEDS ORDERED: GLYCOPYRROLATE 0.2 MG/ML 2 ML VIAL ONE (08:27)
[2025-01-29] MEDS: GENTAMICIN 80 MG in SODIUM CHLORIDE 0.9% 100 ML IVPB PRN (08:33)
[2025-01-29] MEDS: AMPICILLIN 2,000 MG in SODIUM CHLORIDE 0.9% 100 ML IVPB PRN (08:33)
--- NOTE | 2025-01-29 09:53 | P.OP ---
Date of Procedure: 01/29/25 Preoperative Diagnosis: Bladder tumor Postoperative Diagnosis: Same Procedure(s) Performed: Cystoscopy, transurethral resection of bladder tumor (large) Anesthesia: MARCA Surgeon: Jose Tapia Estimated Blood Loss (ml): 10 IV fluids (ml): 300 Pathology: other (Bladder tumor fragments) Condition: stable Disposition: PACU Indications for Procedure: The patient is an 84-year-old white female who has been treated for urinary urge incontinence and recurrent UTIs. She was treated for an Enterococcus UTI last month. She subsequently developed gross hematuria. CT scan of the abdomen and pelvis showed normal upper tracts. Aspirin and Plavix were held, and the hematuria resolved. This allowed cystoscopy to be performed, revealing tumor at the right posterior bladder dome having a cobblestone appearance. She now comes for resection. 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 Description of Procedure: The patient was taken in the operating room and placed in the dorsal lithotomy position, with her legs supported in Mamadou stirrups. The external genitalia was prepped and draped sterilely. The 25-[place] [employer] resectoscope sheath was introduced into the bladder. The bladder was inspected. Both ureteral orifices were of normal anatomic location and configuration, and clear urine effluxed from both. The entire bladder was examined, revealing tumor at the right bladder dome with a cobblestone appearance. Right posterior bladder wall scarring was noted. Using the bipolar cutting loop, the tumor was resected down to the muscle. Excellent hemostasis was attained. The resected tissue was saved and sent for pathologic examination. In 1 area, the tumor appeared to be muscle invasive. Deeper resection was performed in this area, and this tissue was sent as a separate specimen. A 20-[place] Garcia catheter was inserted. The return was clear. The patient tolerated the procedure well and was taken to the recovery room in stable condition.
[2025-01-29 10:13] VITALS: TEMP 96.8
[2025-01-29 10:49] VITALS: RESP 16
[2025-01-29 11:31] VITALS: BP 136/75; PULSE 85
== END 2025-01-29 12:08 | disposition home or self-care (01) ==
LOC: OR 07:08
PROVIDERS: ATTEND Urology
DX: C67.1 Malignant neoplasm of dome of bladder (principal); N39.41 Urge incontinence; E03.9 Hypothyroidism, unspecified; E78.5 Hyperlipidemia, unspecified; F03.90 Unspecified dementia, unspecified severity, without behavioral disturbance, psychotic disturbance, mood disturbance, and anxiety; I25.10 Atherosclerotic heart disease of native coronary artery without angina pectoris; M19.90 Unspecified osteoarthritis, unspecified site; Z79.02 Long term (current) use of antithrombotics/antiplatelets; Z79.890 Hormone replacement therapy; Z85.3 Personal history of malignant neoplasm of breast; Z86.73 Personal history of transient ischemic attack (TIA), and cerebral infarction without residual deficits; Z87.891 Personal history of nicotine dependence; Z88.8 Allergy status to other drugs, medicaments and biological substances; Z90.710 Acquired absence of both cervix and uterus; Z91.041 Radiographic dye allergy status; Z79.899 Other long term (current) drug therapy; Z88.5 Allergy status to narcotic agent; Z79.82 Long term (current) use of aspirin; Z87.442 Personal history of urinary calculi
CPT/HCPCS: 88307; 52240; J0330; J1100; J2710; J2405; J2003; J3010; J1580; J0290; J2704; J1596

== ENCOUNTER → 2025-02-27 | Outpatient (CLI) | payer MEDICARE ==
--- NOTE | 2025-02-27 22:14 | PE ---
EXAMINATION TYPE: PET CT fusion skull to thigh DATE OF EXAM: 02/27/2025 COMPARISON: CT abdomen pelvis 01/04/2025 Prior PET/CT: No prior PET/CT at this location. CLINICAL INDICATION: Female, 84 years old with history of C67.1 BLADDER CANCER, TECHNIQUE: Following the intravenous administration of 10.2 mCi of F-18 FDG, whole body images are p erformed PET CT fusion skull to thigh. Images are reviewed on the computer in the coronal, axial, an d sagittal planes. Reconstructed rotating images are created on independent workstation and reviewed on the computer. A localization and attenuation correction CT is performed in conjunction with the PET scan. DLP: 675.8 mGycm SCAN: Subsequent Blood glucose: 97 mg/dL Average Mediastinum SUV: 2.59 Average Liver SUV: 3.21 FINDINGS: NECK: No abnormal uptake THORAX: Minimal uptake below background may be through the esophagus. Consider some esophagitis. Susp icious intense uptake is not identified ABDOMEN: No abnormal uptake PELVIS: No abnormal uptake. The urinary bladder is filled with excreted radiotracer cannot be well ev aluated for uptake. OSSEOUS STRUCTURES: No abnormal uptake LOCALIZATION CT: Dense coronary artery calcification is noted. Some asymmetric wall thickening along the right urinary bladder on localization CT may be present. COMPARISON: No significant interval change from comparison IMPRESSION: 1. No suspicious changes to suggest metastatic urinary bladder cancer. 2. Urinary bladder itself cannot be well evaluated due to normal radiotracer collection from renal ex cretion into the urinary bladder [facility], , 02/27/2025 10:11 PM
== END | disposition home or self-care (01) ==
LOC: RADPETMAIN 15:52
PROVIDERS: ATTEND Internal Medicine Hematology & Oncology
DX: C67.1 Malignant neoplasm of dome of bladder (principal)
CPT/HCPCS: 78815; A9552

== ENCOUNTER 2025-05-07 04:15 | Emergency (ER) | payer MEDICARE ==
[2025-05-07 04:21] VITALS: TEMP 97.9
--- NOTE | 2025-05-07 04:25 | ED ---
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 Fall Witnessed: no Place Fall Occurred: home Loss of Consciousness: none Prolonged Down Time?: no Symptoms Prior to Fall: none Location: face Severity: severe Severity scale (1-10): 5 Context: tripped/slipped Associated Symptoms: denies - Related Data Home Medications Medication Instructions Recorded Confirmed Aspirin 81 mg PO DAILY 09/10/15 01/23/25 Levothyroxine Sodium [Synthroid] 50 mcg PO DAILY 09/10/15 01/23/25 Cyanocobalamin (Vitamin B-12) 5,000 mcg PO DAILY 09/21/20 01/23/25 [Vitamin B-12] Memantine HCl 10 mg PO HS 09/21/20 01/23/25 Metoprolol Succinate [Toprol XL] 12.5 mg PO DAILY 09/21/20 01/23/25 Vit C/E/Zn/Coppr/Lutein/Zeaxan 2 each PO BID 09/21/20 01/23/25 [Preservision Areds 2 Softgel] Clopidogrel [Plavix] 75 mg PO DAILY 01/19/25 01/23/25 Ergocalciferol [Vitamin D2 (1250 1,250 mcg PO Q14D 01/19/25 01/23/25 Mcg = 51264 Iu)] Ibandronate Sodium [Boniva] 150 mg PO QMONTHLY 01/19/25 01/23/25 Losartan [Cozaar] 12.5 mg PO HS 01/19/25 01/23/25 Methenamine Hippurate 1 gm PO DAILY 01/19/25 01/23/25 Mirabegron [Mirabegron ER] 50 mg PO HS 01/19/25 01/23/25 Multivitamin/Iron/Folic Acid 1 each PO DAILY 01/19/25 01/23/25 [Centrum Women Tablet] Rosuvastatin [Crestor] 10 mg PO HS 01/19/25 01/23/25 Spironolactone [Aldactone] 12.5 mg PO DAILY 01/19/25 01/23/25 Ubidecarenone [Co Q-10] 1 dose PO HS 01/19/25 01/23/25 Venlafaxine HCl ER [Effexor Xr] 75 mg PO DAILY 01/19/25 01/23/25 Allergies Allergy/AdvReac Type Severity Reaction Status Date / Time codeine Allergy Nausea & Verified 01/23/25 09:34 Vomiting iodine Allergy Nausea & Verified 01/23/25 09:34 Vomiting Review of Systems ROS Statement: Those systems with pertinent positive or pertinent negative responses have been documented in the HPI. ROS Other: All systems not noted in ROS Statement are negative. Past Medical History Past Medical History: Coronary Artery Disease (CAD), Cancer, CVA/TIA, Dementia, Eye Disorder, Hyperlipidemia, Memory Impairment, Osteoarthritis (OA), Thyroid Disorder, Vascular Disorder Additional Past Medical History / Comment(s): HX OF LEFT BREAST CANCER WITH RADIATION [place] (1998), BACK PAIN, STATES IRREGULAR HEART BEAT, KIDNEY STONES, HX OF PERFORATED BLADDER, hypothyroidism, CVA 8 yrs ago, balance problems, hypotension, vision impaired-rare disorder PXE- blurry vision. History of Any Multi-Drug Resistant Organisms: CRE Date of last positivie culture/infection: 02/16/22 MDRO CRE per [facility] Carbapenemase Not Detected MDRO Source:: Urine Past Surgical History: Back Surgery, Bladder Surgery, Breast Surgery, Heart Catheterization With Stent, Hysterectomy, Orthopedic Surgery, Tubal Ligation Additional Past Surgical History / Comment(s): LEFT BREAST LUMPECTOMY, CARPAL TUNNEL SURG., LITHOTRIPSY, RIGHT ROTATOR CUFF REP., stent in leg Past Anesthesia/Blood Transfusion Reactions: Previous Problems w/ Anesthesia, Motion Sickness, Postoperative Nausea & Vomiting (PONV) Additional Past Anesthesia/Blood Transfusion Reaction / Comment(s): hard time waking up out of anesthesia and confusion Date of Last Stent Placement:: 09/2023 Past Psychological History: Depression Smoking Status: Former smoker - Past Family History Sister(s) Family Medical History: Deep Vein Thrombosis (DVT) General Exam General appearance: alert, in no apparent distress Head exam: Present: atraumatic, normocephalic, normal inspection Eye exam: Present: normal appearance, PERRL, EOMI. Absent: scleral icterus, conjunctival injection, periorbital swelling ENT exam: Present: normal exam, mucous membranes moist Neck exam: Present: normal inspection. Absent: tenderness, meningismus, lymphadenopathy Respiratory exam: Present: normal lung sounds bilaterally. Absent: respiratory distress, wheezes, rales, rhonchi, stridor Cardiovascular Exam: Present: regular rate, normal rhythm, normal heart sounds. Absent: systolic murmur, diastolic murmur, rubs, gallop, clicks GI/Abdominal exam: Present: soft, normal bowel sounds. Absent: distended, tenderness, guarding, rebound, rigid Extremities exam: Present: normal inspection, full ROM, normal capillary refill. Absent: tenderness, pedal edema, joint swelling, calf tenderness Back exam: Present: normal inspection Neurological exam: Present: alert, oriented X3, CN II-XII intact Psychiatric exam: Present: normal affect, normal mood Skin exam: Present: warm, dry, intact, normal color. Absent: rash Course Vital Signs 05/07/25 05/07/25 04:17 04:46 Temperature 97.9 F Pulse Rate 63 73 Respiratory 19 18 Rate Blood Pressure 123/71 121/66 O2 Sat by Pulse 98 97 Oximetry - Reevaluation(s) Reevaluation #1: 05/07/25 04:40 Medical records reviewed Reevaluation #2: 05/07/25 05:07 Patient symptoms improved Reevaluation #3: 05/07/25 05:07 Patient informed of results questions answered Reevaluation #4: Was pt. sent in by a medical professional or institution (, PA, [employer]LINDER [employer]ESS [employer]EDER, urgent care, hospital, or custodial...) When possible be specific @ -no Did you speak to anyone other than the patient for history (EMS, parent, family, police, friend...)? What history was obtained from this source @ -no Did you review nursing and triage notes (agree or disagree)? Why? @ -agree Are old charts reviewed (outside hosp., previous admission, EMS record, old EKG, old radiological studies, urgent care reports/EKG's, custodial records)? Re port findings @ -yes Differential Diagnosis (chest pain, altered mental status, abdominal pain women, abdominal pain men, vaginal bleeding, weakness, fever, dyspnea, syncope, headache, dizziness, GI bleed, back pain, seizure, CVA, palpatations, mental health, musculoskeletal)? @ -prior EKG interpreted by me (3pts min.). @ -yes X-rays interpreted by me (1pt min.). @ -yes negative for acute disease CT interpreted by me (1pt min.). @ -no U/S interpreted by me (1pt. min.). @ -no What testing was considered but not performed or refused? (CT, X-rays, U/S, labs)? Why? @ -none What meds were considered but not given or refused? Why? @ -none Did you discuss the management of the patient with other professionals (professionals i.e. Dr., PA, CYLINDER PRESS FEEDER, lab, RT, psych nurse, social work program coordinator, sports trainer, teacher, traffic division commanding officer, employment case manager)? Give summary @ -no Was smoking cessation discussed for >3mins.? @ -no Was critical care preformed (if so, how long)? @ -no Were there social determinants of health that impacted care today? How? (Homelessness, low income, unemployed, alcoholism, drug addiction, transportation, low edu. Level, literacy, decrease access to med. care, longterm, rehab)? @ -none Was there de-escalation of care discussed even if they declined (Discuss DNR or withdrawal of care, Hospice)? DNR status @ -no What co-morbidities impacted this encounter? (DM, HTN, Smoking, COPD, CAD, Cancer, CVA, ARF, Chemo, Hep., AIDS, mental health diagnosis, sleep apnea, morbid obesity)? @ -none Was patient admitted / discharged? Hospital course, mention meds given and route, prescriptions, significant lab abnormalities, going to OR and other pertinent info. @ - Undiagnosed new problem with uncertain prognosis? @ -no Drug Therapy requiring intensive monitoring for toxicity (Heparin, Nitro, Insulin, Cardizem)? @ -no Were any procedures done? @ -no Diagnosis/symptom? @ - Acute, or Chronic, or Acute on Chronic? @ -Acute Uncomplicated (without systemic symptoms) or Complicated (systemic symptoms)? @ -Complicated Side effects of treatment? @ -no Exacerbation, Progression, or Severe Exacerbation? @ -exacerbation Poses a threat to life or bodily function? How? (Chest pain, [place], [place], pneumonia, PE, COPD, DKA, ARF, appy, cholecystitis, CVA, Diverticulitis, Homicidal, Suicidal, threat to staff... and all critical care pts) @ -yes Reevaluation #5: Differential Headache: Migraine, tension, cluster, carbon monoxide, central venous thrombosis, pension karma temporal arteritis, acute closure glaucoma, intercranial hemorrhage, mastoiditis, sinusitis, head injury, this is not meant to be an all-inclusive list. Medical Decision Making - Medical Decision Making 84 female with fall head injury no acute intracranial hemorrhage patient can be discharged home - Radiology Data Radiology results: report reviewed (CT brain C-spine negative for acute disease), image reviewed Disposition Clinical Impression: Fall, Head injury Disposition: HOME SELF-CARE Condition: Good Instructions (If sedation given, give patient instructions): Fall Prevention for Older Adults (ED) Is patient prescribed a controlled substance at d/c from ED?: No Referrals: Nimesh Ray MD [Primary Care Provider] - 1-2 days Time of Disposition: 05:06
[2025-05-07 04:57] VITALS: RESP 18
--- NOTE | 2025-05-07 05:01 | CT ---
EXAM: CT Head Without Intravenous Contrast CLINICAL HISTORY: ITS.REASON CT Reason: fall TECHNIQUE: Axial computed tomography images of the head/brain without intravenous contrast. CTDI is 45.2 mGy and DLP is 1007 mGy-cm. This CT exam was performed using one or more of the following dose reduction techniques: automated exposure control, adjustment of the mA and/or kV according to patient size, and/or use of iterative reconstruction technique. COMPARISON: No relevant prior studies available. FINDINGS: Brain: Hypodense changes are seen within the periventricular and deep white matter. No hemorrhage. Ventricles: Widening of the ventricles and sulci without evidence of midline shift or hydrocephalus. Bones/joints: Unremarkable. No acute fracture. Soft tissues: Unremarkable. Sinuses: Unremarkable as visualized. No acute sinusitis. Mastoid air cells: Unremarkable as visualized. No mastoid effusion. IMPRESSION: No acute intracranial findings. No intracranial hemorrhage. EXAM: CT Cervical Spine Without Intravenous Contrast CLINICAL HISTORY: ITS.REASON CT Reason: fall TECHNIQUE: Axial computed tomography images of the cervical spine without intravenous contrast. CTDI is 9.6 mGy and DLP is 267.1 mGy-cm. This CT exam was performed using one or more of the following dose reduction techniques: automated exposure control, adjustment of the mA and/or kV according to patient size, and/or use of iterative reconstruction technique. COMPARISON: No relevant prior studies available. FINDINGS: Vertebrae: Diffuse degenerative endplate and uncovertebral hypertrophy. No acute fracture. Discs/spinal canal/neural foramina: Diffuse intervertebral disc space narrowing most severe at C6-7. Soft tissues: Unremarkable. IMPRESSION: No acute findings. No evidence of fracture.
--- NOTE | 2025-05-07 05:43 | XR ---
EXAM: XR Right Elbow Complete, 3 or More Views CLINICAL HISTORY: ITS.REASON XR Reason: pain TECHNIQUE: Frontal, lateral and oblique views of the right elbow. COMPARISON: No relevant prior studies available. FINDINGS: Bones/joints: Mild degenerative changes are seen in the elbow. No acute fracture. No dislocation. Soft tissues: Unremarkable. IMPRESSION: No acute findings in the right elbow.
[2025-05-07 05:55] VITALS: BP 114/94; PULSE 80
--- NOTE | 2025-05-07 06:05 | XR ---
EXAM: XR Right Wrist Complete, 3 or More Views CLINICAL HISTORY: ITS.REASON XR Reason: pain TECHNIQUE: Frontal, lateral and oblique views of the right wrist. COMPARISON: No relevant prior studies available. FINDINGS: Bones/joints: Degenerative changes are seen within the hand and wrist. No acute fracture. No dislocation. Soft tissues: Unremarkable. No radiopaque foreign body. IMPRESSION: No acute findings in the right wrist.
== END 2025-05-07 05:59 | disposition home or self-care (01) ==
LOC: EC 04:15
DX: S09.90XA Unspecified injury of head, initial encounter (principal); Z87.891 Personal history of nicotine dependence; Z91.041 Radiographic dye allergy status; Z88.5 Allergy status to narcotic agent; W01.0XXA Fall on same level from slipping, tripping and stumbling without subsequent striking against object, initial encounter; Y92.009 Unspecified place in unspecified non-institutional (private) residence as the place of occurrence of the external cause
CPT/HCPCS: 70450; 72125; 99284